=== PATIENT | female | born 1970 | race Caucasian/White ===

== ENCOUNTER 2017-08-18 09:40 | Observation (INO) | payer OTHER ==
[2017-08-18] MEDS ORDERED: SOLU-Medrol 125 MG VIAL IVP ONE (11:50)
[2017-08-18] MEDS: NS 500 ML IV 500 ML IV SCH (12:00)
[2017-08-18 12:39] LABS: BASOPHILS # (AUTO) 0.1 X10^3/uL (0.0-0.1); BASOPHILS % (AUTO) 0.9 % (0.2-1.0); EOSINOPHILS # (AUTO) 0.1 x10^3/uL (0.0-0.2); EOSINOPHILS % (AUTO) 0.6 % (0.9-2.9); HEMATOCRIT 42.4 % (36.0-47.0); HEMOGLOBIN 14.7 g/dL (12.0-16.0); LYMPHOCYTES # (AUTO) 1.9 X10^3/uL (1.3-2.9); LYMPHOCYTES % (AUTO) 19.7 % (21.0-51.0); MEAN CORPUSCULAR HEMOGLOBIN 30.7 pg (27.0-34.0); MEAN CORPUSCULAR HGB CONC 34.7 g/dL (33.0-35.0); MEAN CORPUSCULAR VOLUME 88.6 fL (80.0-100.0); MEAN PLATELET VOLUME 7.3 fL (7.4-11.0); MONOCYTES # (AUTO) 0.8 x10^3/uL (0.3-0.8); MONOCYTES % (AUTO) 8.2 % (0.0-13.0); NEUTROPHILS # (AUTO) 6.8 x10^3/uL (2.2-4.8); NEUTROPHILS % (AUTO) 70.6 % (42.0-75.0); PLATELET COUNT 317 X10^3/uL (150.0-450.0); RED BLOOD COUNT 4.78 X10^6/uL (3.5-5.4); RED CELL DISTRIBUTION WIDTH 14.1 % (11.6-16.5); WHITE BLOOD COUNT 9.7 X10^3/uL (3.6-10.0)
[2017-08-18] MEDS ORDERED: NS 500 ML IV 500 ML IV ONE (12:42)
[2017-08-18 12:45] LABS: BLOOD UREA NITROGEN 12 mg/dL (7-18); CALCIUM 9.5 mg/dL (8.5-10.1); CHLORIDE 104 mmol/L (98-107); COR NA(FOR HYPERGLY) 140 mmol/L (136-145); CREATININE 1.22 mg/dL (0.55-1.02); SODIUM 140 mmol/L (136-145); eGFR BLACK RACES > 60 (>60); eGFR NON BLACK RACES 51 (>60)
[2017-08-18 13:00] LABS: ABG BASE EXCESS 2.4 mmol/L (-2.0-2.0); ABG HCO3 27.2 mmol/L (22-26)
[2017-08-18 13:01] LABS: ABG ALLEN TEST POS
[2017-08-18 13:19] VITALS: BMI 43.9
--- NOTE | 2017-08-18 13:21 | RAD ---
Examination: Chest, PA and lateral views History: SOB, history of hypertension and CHF Comparison reference 07/18/2017 Findings: Continued normal heart size with clear lungs and pleural spaces. Symmetric low volume lungs , attributed to patient habitus. Impression: No acute or significant chest abnormality identified. Reported By:
[2017-08-18] MEDS: DUONEB 0.5 MG/3 MG NEB SCH ×3 (13:31→20:40)
[2017-08-18] MEDS: ZITHROMAX INJ 500 MG VIAL 500 MG in NS 250 ML IV 250 ML IV SCH (14:11)
[2017-08-18] MEDS: ROCEPHIN VIAL 1 GM 1 GM in NS 50 ML IV 50 ML IV SCH (14:12)
[2017-08-18 15:08] LABS: BILIRUBIN,URINE NEGATIVE (NEGATIVE); BLOOD/HEMOGLOBIN,URINE NEGATIVE (NEGATIVE); GLUCOSE, URINE NEGATIVE (NEGATIVE); KETONES,URINE NEGATIVE (NEGATIVE); LEUKOCYTE ESTERASE ,URINE 1+ (NEGATIVE); NITRITES,URINE NEGATIVE (NEGATIVE); PROTEIN,URINE NEGATIVE (NEGATIVE); UROBILINOGEN,URINE NORMAL (NORMAL)
[2017-08-18 15:26] LABS: APPEARANCE,URINE CLEAR (CLEAR); COLOR,URINE YELLOW (YELLOW); RBC,URINE 0-1 /HPF (NEGATIVE); SQUAMOUS EPITHELIAL CELL,UR FEW /HPF (NEGATIVE)
[2017-08-18 15:27] LABS: BACTERIA,URINE NEGATIVE /HPF (NEGATIVE)
[2017-08-18] MEDS ORDERED: SALINE 3% 15 ML NEB TX NEB ONE ×2 (16:55→17:55)
[2017-08-18] MEDS ORDERED: SALINE 3% 15 ML NEB TX ONE (16:56)
--- NOTE | 2017-08-18 17:02 | DR.H&P ---
H&P - History & Physical for Day of: H&P Date: 08/18/17 - Chief Complaint Chief Complaint: SOB - Allergies Allergies/Adverse Reactions: Allergies Allergy/AdvReac Type Severity Reaction Status Date / Time No Known Drug Allergies Allergy Verified 07/11/17 07:29 - History of Present Illness History of Present Illness: Patient is a 46 yo WF that presents today with upper respiratory congestion X 1 weeks . Patient reports productive green sputum with cough. The patient reports no fever . Patient reports nasal congestion , sore throat , no dizziness , no decreased oral intake , lethargy . States she has not got out of the bed in 3 days. States she is very SOB with minimal exertion. Patient is on long-term O2 therapy. Was recently admitted with respiratory flare. 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 - Past Medical History Past Medical History: COPD (Chronic O2 dependent), Migraines, Hypertension - Past Surgical History Surgical History: Cholecystectomy - Family History Family Medical History: Diabetes Mellitus, Cancer, [place], Sudden Cardiac , Hypertension - Social History Does patient currently use any type of tobacco product: No Have you used tobacco products in the last 12 months: Yes (occationally) Type of Tobacco Use: None Does any household member use tobacco: No Alcohol Use: None Drug Use: None - Review of Systems Constitutional: Weakness, Malaise Eyes: No Symptoms Reported ENT: No Symptoms Reported Respiratory: Cough, Shortness of Breath, SOB with Excertion, Wheezing Cardiovascular: No Symptoms Reported Gastrointestinal: No Symptoms Reported Genitourinary: No Symptoms Reported Musculoskeletal: No Symptoms Reported Skin: No Symptoms Reported Neurological: No Symptoms Reported - Physical Exam Vital Signs: Temperature 98.5 F Pulse Rate [Right Brachial] 95 Respiratory Rate 20 Blood Pressure [Right Arm] 114/74 Blood Pressure [Left Arm] 100/54 Blood Pressure 99/56 O2 Sat by Pulse Oximetry 97 Oriented: Normal Eyes: Normal Ear: Normal Nose: Normal Throat: Normal Respiratory: Diminished Throughout Cardiovascular: Normal : Normal Auscultation: Bowel Sounds: Normal Palpation: Normal Tenderness: Normal Skin: Normal Musculoskeletal: Normal Psychiatric: Normal Mood Description: Calm Affect: Normal Speech Pattern: Clear - Assessment/Plan (1) COPD (chronic obstructive pulmonary disease) with acute bronchitis Status: Acute Plan: CXR, ABG, NEBS, SOLUMEDROL, ROCEPHIN, ZITHROMAX (2) Chronic respiratory failure Status: Acute Plan: O2 AT 2L/M NC, ABG (3) UTI (urinary tract infection) Status: Acute Plan: ROCEPHIN IV
[2017-08-18] MEDS: NORCO 5/325 MG TAB PO PRN (21:10)
[2017-08-18] MEDS: AMBIEN PO PRN (21:10)
[2017-08-18] MEDS ORDERED: STERILE WATER IRRIGATION IR ONE (21:11)
[2017-08-19] MEDS: DUONEB 0.5 MG/3 MG NEB SCH ×7 (01:08→22:46)
[2017-08-19 06:05] LABS: ALANINE AMINOTRANSFERASE 31 Units/L (12-78); ALBUMIN 3.8 g/dL (3.4-5.0); ALKALINE PHOSPHATASE 82 Units/L (46-116); ASPARTATE AMINO TRANSFERASE 12 Units/L (15-37); BLOOD UREA NITROGEN 18 mg/dL (7-18); CALCIUM 9.4 mg/dL (8.5-10.1); CARBON DIOXIDE 25.1 mmol/L (21-32); CHLORIDE 104 mmol/L (98-107); COR NA(FOR HYPERGLY) 144 mmol/L (136-145); CREATININE 1.06 mg/dL (0.55-1.02); SODIUM 141 mmol/L (136-145); eGFR BLACK RACES > 60 (>60); eGFR NON BLACK RACES 60 (>60)
[2017-08-19 06:08] LABS: BASOPHILS % (AUTO) 0.2 % (0.2-1.0); HEMATOCRIT 40.6 % (36.0-47.0); LYMPHOCYTES # (AUTO) 0.5 X10^3/uL (1.3-2.9); LYMPHOCYTES % (AUTO) 4.6 % (21.0-51.0); MEAN CORPUSCULAR HEMOGLOBIN 30.6 pg (27.0-34.0); MEAN CORPUSCULAR HGB CONC 34.4 g/dL (33.0-35.0); MEAN CORPUSCULAR VOLUME 88.8 fL (80.0-100.0); MEAN PLATELET VOLUME 7.6 fL (7.4-11.0); MONOCYTES # (AUTO) 0.3 x10^3/uL (0.3-0.8); MONOCYTES % (AUTO) 2.7 % (0.0-13.0); NEUTROPHILS # (AUTO) 10.8 x10^3/uL (2.2-4.8); NEUTROPHILS % (AUTO) 92.5 % (42.0-75.0); PLATELET COUNT 299 X10^3/uL (150.0-450.0); RED BLOOD COUNT 4.58 X10^6/uL (3.5-5.4); WHITE BLOOD COUNT 11.7 X10^3/uL (3.6-10.0)
[2017-08-19 07:06] LABS: PLATELET MORPHOLOGY COMMENT NORMAL (NORMAL)
[2017-08-19] MEDS: ROCEPHIN VIAL 1 GM 1 GM in NS 50 ML IV 50 ML IV SCH (08:54)
[2017-08-19] MEDS: ZITHROMAX INJ 500 MG VIAL 500 MG in NS 250 ML IV 250 ML IV SCH (08:54)
[2017-08-19] MEDS: NORCO 5/325 MG TAB PO PRN (08:55)
[2017-08-19] MEDS: MUCOMYST 20% 200 MG/ML NEB SCH ×3 (12:11→22:48)
[2017-08-19] MEDS ORDERED: IMITREX TAB PO ONE (13:23)
[2017-08-19] MEDS ORDERED: ULTRAM PO PRN (13:24)
[2017-08-19] MEDS: ZOFRAN INJ 4 MG VIAL IVP PRN ×2 (14:00→22:26)
[2017-08-19] MEDS: K-DUR TAB 20 MEQ PO SCH (14:01)
[2017-08-19] MEDS: NEURONTIN TAB 600 MG PO SCH ×2 (14:01→22:25)
[2017-08-19] MEDS: PROTONIX TAB 40 MG PO SCH (14:02)
[2017-08-19] MEDS: NORVASC TAB 5 MG PO SCH (14:02)
--- NOTE | 2017-08-19 17:11 | CT ---
HISTORY: Shortness of breath Study: CT chest without contrast Comparison: Plain film 08/18/2017 Technique: Axial noncontrast images with coronal and sagittal reformats. Dose reduction procedures we re used with mA/kv adjusted for body size. Findings: Examination of the mediastinum demonstrated no evidence for mediastinal masses, lymphadenopathy, or h ilar lymphadenopathy. No pleural effusions are identified. No chest wall or axillary abnormality is i dentified. Those portions of the upper abdominal organs visualized were within normal limits. Examina tion of the lung hester demonstrated no significant nodules, masses, alveolar infiltrates, areas of c onsolidation, peribronchial thickening, or bronchiectasis. IMPRESSION: No significant abnormality identified Reported By:
[2017-08-19] MEDS ORDERED: PATIENT'S HOME MEDICATION (Ranitidine Hcl [Zantac] 300 MG) PO SCH (21:00)
[2017-08-19] MEDS ORDERED: PATIENT'S HOME MEDICATION (Rosuvastatin Calcium [Rosuvastatin Calcium] 20 MG) PO SCH (21:00)
[2017-08-19] MEDS: CRESTOR TAB 10 MG PO SCH (22:24)
[2017-08-19] MEDS: ZANTAC PO SCH (22:25)
[2017-08-19] MEDS: FLEXERIL TAB 10 MG PO SCH (22:26)
[2017-08-19] MEDS: SEROquel TAB 100 MG PO SCH (22:28)
[2017-08-19] MEDS: XANAX PO PRN (22:36)
[2017-08-19] MEDS: CYMBALTA PO SCH (22:36)
[2017-08-20] MEDS: DUONEB 0.5 MG/3 MG NEB SCH ×6 (00:41→21:29)
[2017-08-20 05:00] LABS: ALANINE AMINOTRANSFERASE 27 Units/L (12-78); ALBUMIN 3.6 g/dL (3.4-5.0); ALKALINE PHOSPHATASE 74 Units/L (46-116); ASPARTATE AMINO TRANSFERASE 10 Units/L (15-37); BLOOD UREA NITROGEN 18 mg/dL (7-18); CALCIUM 8.7 mg/dL (8.5-10.1); CARBON DIOXIDE 24.2 mmol/L (21-32); CHLORIDE 108 mmol/L (98-107); COR NA(FOR HYPERGLY) 144 mmol/L (136-145); CREATININE 0.87 mg/dL (0.55-1.02); SODIUM 143 mmol/L (136-145); TOTAL PROTEIN 6.5 g/dL (6.4-8.2); eGFR BLACK RACES > 60 (>60); eGFR NON BLACK RACES > 60 (>60)
[2017-08-20 05:07] LABS: BASOPHILS # (AUTO) 0.1 X10^3/uL (0.0-0.1); BASOPHILS % (AUTO) 0.7 % (0.2-1.0); EOSINOPHILS % (AUTO) 0.2 % (0.9-2.9); HEMATOCRIT 38.6 % (36.0-47.0); HEMOGLOBIN 13.3 g/dL (12.0-16.0); LYMPHOCYTES # (AUTO) 2.5 X10^3/uL (1.3-2.9); LYMPHOCYTES % (AUTO) 23.3 % (21.0-51.0); MEAN CORPUSCULAR HEMOGLOBIN 30.8 pg (27.0-34.0); MEAN CORPUSCULAR HGB CONC 34.5 g/dL (33.0-35.0); MEAN CORPUSCULAR VOLUME 89.3 fL (80.0-100.0); MEAN PLATELET VOLUME 7.2 fL (7.4-11.0); MONOCYTES # (AUTO) 0.7 x10^3/uL (0.3-0.8); MONOCYTES % (AUTO) 6.7 % (0.0-13.0); NEUTROPHILS # (AUTO) 7.4 x10^3/uL (2.2-4.8); NEUTROPHILS % (AUTO) 69.1 % (42.0-75.0); PLATELET COUNT 278 X10^3/uL (150.0-450.0); RED BLOOD COUNT 4.32 X10^6/uL (3.5-5.4); WHITE BLOOD COUNT 10.7 X10^3/uL (3.6-10.0)
[2017-08-20] MEDS: NEURONTIN TAB 600 MG PO SCH ×3 (05:18→21:10)
[2017-08-20] MEDS: NS 500 ML IV 500 ML IV SCH ×2 (07:27→16:47)
[2017-08-20] MEDS: ROCEPHIN VIAL 1 GM 1 GM in NS 100 ML IV + SPIKE MINIBAG* 100 ML IV SCH (08:40)
[2017-08-20] MEDS: SEROquel TAB 100 MG PO SCH ×2 (08:40→20:51)
[2017-08-20] MEDS: FLEXERIL TAB 10 MG PO SCH ×2 (08:40→20:51)
[2017-08-20] MEDS: ALDACTONE TAB 25 MG PO SCH (08:40)
[2017-08-20] MEDS: ZITHROMAX INJ 500 MG VIAL 500 MG in NS 250 ML IV 250 ML IV SCH (08:40)
[2017-08-20] MEDS: SINGULAIR TAB 10 MG PO SCH (08:40)
[2017-08-20] MEDS: ZOFRAN INJ 4 MG VIAL IVP PRN (08:41)
[2017-08-20] MEDS: PROTONIX TAB 40 MG PO SCH (08:41)
[2017-08-20] MEDS: K-DUR TAB 20 MEQ PO SCH (08:41)
[2017-08-20] MEDS: LASIX PO SCH (08:41)
[2017-08-20] MEDS: TENORMIN PO SCH (08:41)
[2017-08-20] MEDS ORDERED: PATIENT'S HOME MEDICATION (Potassium Chloride [K-Tab Er] 20 MEQ) PO SCH (09:00)
[2017-08-20] MEDS: MUCOMYST 20% 200 MG/ML NEB SCH ×4 (09:06→21:29)
[2017-08-20] MEDS: CYMBALTA PO SCH ×2 (10:26→20:54)
[2017-08-20] MEDS: NORVASC TAB 5 MG PO SCH (10:27)
[2017-08-20] MEDS ORDERED: NS 1000 ML 1,000 ML IV SCH (14:00)
[2017-08-20] MEDS: ZANTAC PO SCH (20:51)
[2017-08-20] MEDS: CRESTOR TAB 10 MG PO SCH (20:52)
[2017-08-20] MEDS: XANAX PO PRN (21:13)
[2017-08-21] MEDS: DUONEB 0.5 MG/3 MG NEB SCH ×6 (00:55→21:42)
[2017-08-21] MEDS: NEURONTIN TAB 600 MG PO SCH ×3 (05:17→22:19)
[2017-08-21 06:30] LABS: ALANINE AMINOTRANSFERASE 30 Units/L (12-78); ALBUMIN 3.7 g/dL (3.4-5.0); ALKALINE PHOSPHATASE 89 Units/L (46-116); ASPARTATE AMINO TRANSFERASE 11 Units/L (15-37); BLOOD UREA NITROGEN 18 mg/dL (7-18); CALCIUM 9.4 mg/dL (8.5-10.1); CHLORIDE 106 mmol/L (98-107); CREATININE 0.92 mg/dL (0.55-1.02); SODIUM 144 mmol/L (136-145); TOTAL PROTEIN 6.7 g/dL (6.4-8.2); eGFR BLACK RACES > 60 (>60); eGFR NON BLACK RACES > 60 (>60)
[2017-08-21 06:31] LABS: BASOPHILS % (AUTO) 0.5 % (0.2-1.0); EOSINOPHILS # (AUTO) 0.1 x10^3/uL (0.0-0.2); EOSINOPHILS % (AUTO) 0.9 % (0.9-2.9); HEMATOCRIT 40.7 % (36.0-47.0); HEMOGLOBIN 14.3 g/dL (12.0-16.0); LYMPHOCYTES # (AUTO) 2.4 X10^3/uL (1.3-2.9); LYMPHOCYTES % (AUTO) 26.8 % (21.0-51.0); MEAN CORPUSCULAR HEMOGLOBIN 31.2 pg (27.0-34.0); MEAN CORPUSCULAR VOLUME 89.1 fL (80.0-100.0); MEAN PLATELET VOLUME 7.3 fL (7.4-11.0); MONOCYTES # (AUTO) 0.9 x10^3/uL (0.3-0.8); MONOCYTES % (AUTO) 9.5 % (0.0-13.0); NEUTROPHILS # (AUTO) 5.7 x10^3/uL (2.2-4.8); NEUTROPHILS % (AUTO) 62.3 % (42.0-75.0); PLATELET COUNT 273 X10^3/uL (150.0-450.0); RED BLOOD COUNT 4.57 X10^6/uL (3.5-5.4); RED CELL DISTRIBUTION WIDTH 14.3 % (11.6-16.5); WHITE BLOOD COUNT 9.1 X10^3/uL (3.6-10.0)
[2017-08-21] MEDS: ZITHROMAX INJ 500 MG VIAL 500 MG in NS 250 ML IV 250 ML IV SCH (09:13)
[2017-08-21] MEDS: SINGULAIR TAB 10 MG PO SCH (09:14)
[2017-08-21] MEDS: K-DUR TAB 20 MEQ PO SCH (09:14)
[2017-08-21] MEDS: LASIX PO SCH (09:14)
[2017-08-21] MEDS: SEROquel TAB 100 MG PO SCH ×2 (09:14→20:11)
[2017-08-21] MEDS: NORVASC TAB 5 MG PO SCH (09:14)
[2017-08-21] MEDS: PROTONIX TAB 40 MG PO SCH (09:14)
[2017-08-21] MEDS: ALDACTONE TAB 25 MG PO SCH (09:14)
[2017-08-21] MEDS: FLEXERIL TAB 10 MG PO SCH ×2 (09:15→20:11)
[2017-08-21] MEDS: TENORMIN PO SCH (09:15)
[2017-08-21] MEDS: ROCEPHIN VIAL 1 GM 1 GM in NS 100 ML IV + SPIKE MINIBAG* 100 ML IV SCH (09:15)
[2017-08-21] MEDS: MUCOMYST 20% 200 MG/ML NEB SCH ×4 (09:33→21:42)
[2017-08-21] MEDS: ZOFRAN INJ 4 MG VIAL IVP PRN ×2 (09:51→16:44)
[2017-08-21] MEDS: CYMBALTA PO SCH ×2 (13:57→20:11)
[2017-08-21] MEDS: XANAX PO PRN (20:11)
[2017-08-21] MEDS: ZANTAC PO SCH (20:11)
[2017-08-21] MEDS: NORCO 10/325 TAB PO PRN (20:11)
[2017-08-21] MEDS: CRESTOR TAB 10 MG PO SCH (20:11)
[2017-08-21] MEDS: NS 500 ML IV 500 ML IV SCH (20:12)
[2017-08-21] MEDS: AMBIEN PO PRN (20:12)
[2017-08-22] MEDS: DUONEB 0.5 MG/3 MG NEB SCH ×4 (00:48→12:04)
[2017-08-22] MEDS: NEURONTIN TAB 600 MG PO SCH ×2 (05:51→13:12)
[2017-08-22 06:31] LABS: BASOPHILS # (AUTO) 0.1 X10^3/uL (0.0-0.1); BASOPHILS % (AUTO) 0.8 % (0.2-1.0); EOSINOPHILS # (AUTO) 0.1 x10^3/uL (0.0-0.2); EOSINOPHILS % (AUTO) 0.6 % (0.9-2.9); HEMATOCRIT 39.3 % (36.0-47.0); HEMOGLOBIN 13.6 g/dL (12.0-16.0); LYMPHOCYTES # (AUTO) 2.6 X10^3/uL (1.3-2.9); LYMPHOCYTES % (AUTO) 29.1 % (21.0-51.0); MEAN CORPUSCULAR HEMOGLOBIN 31.1 pg (27.0-34.0); MEAN CORPUSCULAR HGB CONC 34.7 g/dL (33.0-35.0); MEAN CORPUSCULAR VOLUME 89.6 fL (80.0-100.0); MEAN PLATELET VOLUME 7.2 fL (7.4-11.0); MONOCYTES # (AUTO) 0.7 x10^3/uL (0.3-0.8); MONOCYTES % (AUTO) 7.6 % (0.0-13.0); NEUTROPHILS # (AUTO) 5.5 x10^3/uL (2.2-4.8); NEUTROPHILS % (AUTO) 61.9 % (42.0-75.0); PLATELET COUNT 262 X10^3/uL (150.0-450.0); RED BLOOD COUNT 4.39 X10^6/uL (3.5-5.4); RED CELL DISTRIBUTION WIDTH 14.1 % (11.6-16.5); WHITE BLOOD COUNT 8.8 X10^3/uL (3.6-10.0)
[2017-08-22 06:55] LABS: ALANINE AMINOTRANSFERASE 33 Units/L (12-78); ALBUMIN 3.5 g/dL (3.4-5.0); ALKALINE PHOSPHATASE 87 Units/L (46-116); ASPARTATE AMINO TRANSFERASE 18 Units/L (15-37); BLOOD UREA NITROGEN 27 mg/dL (7-18); CALCIUM 9.1 mg/dL (8.5-10.1); CARBON DIOXIDE 25.2 mmol/L (21-32); CHLORIDE 105 mmol/L (98-107); COR NA(FOR HYPERGLY) 143 mmol/L (136-145); CREATININE 0.94 mg/dL (0.55-1.02); SODIUM 142 mmol/L (136-145); TOTAL PROTEIN 6.4 g/dL (6.4-8.2); eGFR BLACK RACES > 60 (>60); eGFR NON BLACK RACES > 60 (>60)
--- NOTE | 2017-08-22 07:01 | RAD ---
Examination: Portable AP chest History: COPD, SOB Comparison 08/18/2017 Findings: Continued upper normal heart size with essentially clear lungs. Elevated right diaphragm li mits evaluation of the right lower lung. There is no obvious consolidation, pulmonary edema or pneumo thorax. Impression: No interval abnormality demonstrated. Reported By:
[2017-08-22] MEDS: ZOFRAN INJ 4 MG VIAL IVP PRN (09:04)
[2017-08-22] MEDS: SEROquel TAB 100 MG PO SCH (09:06)
[2017-08-22] MEDS: K-DUR TAB 20 MEQ PO SCH (09:06)
[2017-08-22] MEDS: NORCO 10/325 TAB PO PRN (09:07)
[2017-08-22] MEDS: SINGULAIR TAB 10 MG PO SCH (09:07)
[2017-08-22] MEDS: LASIX PO SCH (09:08)
[2017-08-22] MEDS: ALDACTONE TAB 25 MG PO SCH (09:08)
[2017-08-22] MEDS: FLEXERIL TAB 10 MG PO SCH (09:08)
[2017-08-22] MEDS: PROTONIX TAB 40 MG PO SCH (09:08)
[2017-08-22] MEDS: TENORMIN PO SCH (09:08)
[2017-08-22] MEDS: CYMBALTA PO SCH (09:11)
[2017-08-22] MEDS: ROCEPHIN VIAL 1 GM 1 GM in NS 100 ML IV + SPIKE MINIBAG* 100 ML IV SCH (11:25)
[2017-08-22] MEDS: ZITHROMAX INJ 500 MG VIAL 500 MG in NS 250 ML IV 250 ML IV SCH (11:26)
[2017-08-22 12:02] VITALS: BP 93/58
== END 2017-08-22 15:10 | disposition home or self-care (01) ==
LOC: UNDOADMOB 09:40 → MED/SURG 09:40
PROVIDERS: ADMIT Internal Medicine; ATTEND Internal Medicine
DX: J44.1 Chronic obstructive pulmonary disease with (acute) exacerbation (principal); J44.0 Chronic obstructive pulmonary disease with (acute) lower respiratory infection; J20.8 Acute bronchitis due to other specified organisms; R06.02 Shortness of breath; Z99.81 Dependence on supplemental oxygen; I10 Essential (primary) hypertension; J45.998 Other asthma
CPT/HCPCS: 36415; 36600; 71020; 71045; 71250; 80048; 80053; 81001; 82803; 85025; 87040; 87086; 93005; 93010; 94640; 94669; 94760; A4217; A4222; G0378; J0456; J0696; J2405; J2930; J7608; J7620

== ENCOUNTER 2017-09-22 12:29 | Inpatient (IN) | payer OTHER ==
--- NOTE | 2017-09-22 13:46 | RAD ---
Examination: Chest, PA and lateral views History: SOB, COPD Comparison August 22, 2017 Findings: Normal heart size with essentially clear lungs. Diminished pulmonary volumes probably relat ed to patient habitus. No pulmonary consolidation, pneumothorax or significant pleural fluid. Impression: No acute chest findings. Reported By:
[2017-09-22 13:53] LABS: BASOPHILS # (AUTO) 0.1 X10^3/uL (0.0-0.1); BASOPHILS % (AUTO) 0.5 % (0.2-1.0); HEMATOCRIT 41.3 % (36.0-47.0); HEMOGLOBIN 14.7 g/dL (12.0-16.0); LYMPHOCYTES % (AUTO) 8.7 % (21.0-51.0); MEAN CORPUSCULAR HEMOGLOBIN 31.3 pg (27.0-34.0); MEAN CORPUSCULAR HGB CONC 35.7 g/dL (33.0-35.0); MEAN CORPUSCULAR VOLUME 87.6 fL (80.0-100.0); MONOCYTES # (AUTO) 0.6 x10^3/uL (0.3-0.8); MONOCYTES % (AUTO) 4.8 % (0.0-13.0); NEUTROPHILS # (AUTO) 9.8 x10^3/uL (2.2-4.8); PLATELET COUNT 262 X10^3/uL (150.0-450.0); RED BLOOD COUNT 4.71 X10^6/uL (3.5-5.4); RED CELL DISTRIBUTION WIDTH 13.7 % (11.6-16.5); WHITE BLOOD COUNT 11.4 X10^3/uL (3.6-10.0)
[2017-09-22 13:59] LABS: CALCIUM 9.2 mg/dL (8.5-10.1); CREATININE 1.52 mg/dL (0.55-1.02)
[2017-09-22 14:56] LABS: ABG BASE EXCESS 5.6 mmol/L (-2.0-2.0); ABG HCO3 29.8 mmol/L (22-26)
[2017-09-22 14:57] LABS: ABG ALLEN TEST POS
[2017-09-22 15:06] LABS: BILIRUBIN,URINE NEGATIVE (NEGATIVE); BLOOD/HEMOGLOBIN,URINE NEGATIVE (NEGATIVE); GLUCOSE, URINE NEGATIVE (NEGATIVE); KETONES,URINE NEGATIVE (NEGATIVE); LEUKOCYTE ESTERASE ,URINE 2+ (NEGATIVE); NITRITES,URINE NEGATIVE (NEGATIVE); PROTEIN,URINE NEGATIVE (NEGATIVE); UROBILINOGEN,URINE NORMAL (NORMAL)
[2017-09-22 15:13] LABS: APPEARANCE,URINE CLEAR (CLEAR); BACTERIA,URINE TRACE /HPF (NEGATIVE); COLOR,URINE YELLOW (YELLOW); RBC,URINE 0-2 /HPF (NEGATIVE); SQUAMOUS EPITHELIAL CELL,UR NEGATIVE /HPF (NEGATIVE)
[2017-09-22] MEDS ORDERED: NS 100 ML IV + SPIKE MINIBAG* 100 ML IV ONE (15:46)
[2017-09-22] MEDS: NS 500 ML IV 500 ML IV SCH (16:16)
[2017-09-22] MEDS: FORTAZ or TAZICEF INJ 1 GM in NS 100 ML IV + SPIKE MINIBAG* 100 ML IV SCH ×2 (16:16→22:02)
[2017-09-22] MEDS ORDERED: ZOFRAN INJ 4 MG VIAL IVP PRN (16:18)
[2017-09-22] MEDS ORDERED: ZOFRAN TAB 4 MG ONE (16:25)
[2017-09-22] MEDS: NORCO 10/325 TAB PO PRN (16:30)
[2017-09-22] MEDS: DUONEB 0.5 MG/3 MG NEB SCH ×2 (16:50→21:52)
[2017-09-22 17:03] VITALS: BMI 44.1
[2017-09-22] MEDS: CIPRO IV 400 MG PREMIX* 400 MG/200 ML IV.SOLN. IV SCH (22:02)
[2017-09-23] MEDS: DUONEB 0.5 MG/3 MG NEB SCH ×5 (01:24→17:23)
[2017-09-23] MEDS: FORTAZ or TAZICEF INJ 1 GM in NS 100 ML IV + SPIKE MINIBAG* 100 ML IV SCH ×3 (05:29→23:12)
[2017-09-23 06:35] LABS: BASOPHILS % (AUTO) 0.4 % (0.2-1.0); EOSINOPHILS % (AUTO) 0.2 % (0.9-2.9); HEMATOCRIT 38.7 % (36.0-47.0); HEMOGLOBIN 13.4 g/dL (12.0-16.0); LYMPHOCYTES # (AUTO) 1.5 X10^3/uL (1.3-2.9); LYMPHOCYTES % (AUTO) 22.1 % (21.0-51.0); MEAN CORPUSCULAR HEMOGLOBIN 30.6 pg (27.0-34.0); MEAN CORPUSCULAR HGB CONC 34.8 g/dL (33.0-35.0); MEAN PLATELET VOLUME 7.2 fL (7.4-11.0); MONOCYTES # (AUTO) 0.6 x10^3/uL (0.3-0.8); MONOCYTES % (AUTO) 8.3 % (0.0-13.0); NEUTROPHILS # (AUTO) 4.6 x10^3/uL (2.2-4.8); PLATELET COUNT 204 X10^3/uL (150.0-450.0); RED BLOOD COUNT 4.39 X10^6/uL (3.5-5.4); RED CELL DISTRIBUTION WIDTH 13.9 % (11.6-16.5); WHITE BLOOD COUNT 6.6 X10^3/uL (3.6-10.0)
[2017-09-23 06:39] LABS: ALANINE AMINOTRANSFERASE 28 Units/L (12-78); ALBUMIN 3.3 g/dL (3.4-5.0); ALKALINE PHOSPHATASE 50 Units/L (46-116); ASPARTATE AMINO TRANSFERASE 7 Units/L (15-37); BLOOD UREA NITROGEN 17 mg/dL (7-18); CALCIUM 8.6 mg/dL (8.5-10.1); CHLORIDE 107 mmol/L (98-107); COR CA(FOR HYPOALB) 9.2 mg/dL (8.5-10.1); CREATININE 0.97 mg/dL (0.55-1.02); SODIUM 145 mmol/L (136-145); TOTAL PROTEIN 6.1 g/dL (6.4-8.2); eGFR BLACK RACES > 60 (>60); eGFR NON BLACK RACES > 60 (>60)
[2017-09-23] MEDS: CIPRO IV 400 MG PREMIX* 400 MG/200 ML IV.SOLN. IV SCH ×2 (08:57→21:01)
[2017-09-23] MEDS: SOLU-Medrol 40 MG VIAL IVP SCH ×2 (08:57→17:06)
[2017-09-23] MEDS: NORCO 10/325 TAB PO PRN (08:57)
[2017-09-23] MEDS ORDERED: K-RIDER 10 MEQ/NS 100 ML 10 MEQ/100 ML BAG IV PRN (09:09)
[2017-09-23] MEDS ORDERED: POTASSIUM CHL 60 MEQ/NS 0.45% 500 ML IV PRN (09:09)
[2017-09-23] MEDS ORDERED: POTASSIUM CHLORIDE LIQ 20 MEQ UDC PO PRN (09:09)
[2017-09-23] MEDS ORDERED: POTASSIUM CHL 40 MEQ/NS 0.45% 500 ML IV PRN (09:09)
[2017-09-23] MEDS ORDERED: K-LYTE EFFERVESCENT PO PRN (09:09)
[2017-09-23] MEDS ORDERED: MAGNESIUM SULFATE 1 GM/100 mL PREMIX 1 GM/100 ML BAG IV PRN (09:09)
[2017-09-23] MEDS ORDERED: MAG-OX TAB PO PRN (09:09)
--- NOTE | 2017-09-23 10:40 | DR.H&P ---
H&P - History & Physical for Day of: H&P Date: 09/21/17 - Chief Complaint Chief Complaint: SOB, Fatigue - Allergies Allergies/Adverse Reactions: Allergies Allergy/AdvReac Type Severity Reaction Status Date / Time No Known Drug Allergies Allergy Verified 07/11/17 07:29 - History of Present Illness History of Present Illness: THE PATIENT IS A 46YO WF WHO IS A DIRECT ADMIT SECONDARY TO CONTNUED DYSPNEA AND FATIGUE. PATIENT WAS SEEN IN THE CLINIC WITH COMLAINTS OF INCREASING DYSPNEA AND CONGESTION. HAVING LOW GRADE FEVER. DENIED PRODUCTIVE COUGH. CWEAR CONTINUIOUS OXYGEN. HAS BEEN USING HER NEBS AND INHALERS WITHOUT IMPROVEMENT. DID RECEIVE ROCEPHIN AND DECADRON IN OFFICE SETTING AND STARTED ON PO ANTIBIOTICS EARLIER IN THE WEEK WITHOUT IMPROVEMENT OF SYMPTOMS. PATIENT ADMITTED. - Past Medical History Past Medical History: COPD (Chronic O2 dependent), Migraines, Hypertension Additional Medical History: CHRONIC RESPIRATORY FAILURE ON OXYGEN - Past Surgical History Surgical History: Cholecystectomy, Other - Family History Family Medical History: Diabetes Mellitus, Cancer, [place], Sudden Cardiac , Hypertension - Social History Does patient currently use any type of tobacco product: No Have you used tobacco products in the last 12 months: No Type of Tobacco Use: None Does any household member use tobacco: No Alcohol Use: None Drug Use: None - Medications Home Medications: Ipratropium/Albuterol Nebule [DUONEB 0.5 MG/3 MG NEBULE *] 1 ea NEB Q6HR [History Confirmed 09/22/17] Loratadine 1 tab PO DAILY 09/22/17 [History Confirmed 09/22/17] Ondansetron HCl [Ondansetron HCl] 1 tab PO Q6H 09/22/17 [History Confirmed 09/22] Oseltamivir Phosphate [TAMIFLU 75 MG CAP (ADULT) *] 1 tab PO BID 09/22/17 [ History Confirmed 09/22/17] Phendimetrazine Tartrate 1 tab PO DAILY 09/22/17 [History Confirmed 09/22/17] Phendimetrazine Tartrate 1 tab PO DAILY 09/22/17 [History Confirmed 09/22/17] Rosuvastatin Calcium 1 tab PO DAILY 09/22/17 [History Confirmed 09/22/17] Spironolactone 1 tab PO DAILY 09/22/17 [History Confirmed 09/22/17] - Review of Systems Constitutional: Weakness, Malaise Eyes: No Symptoms Reported ENT: Nose Congestion Respiratory: Cough, Shortness of Breath, SOB with Excertion, Wheezing Cardiovascular: No Symptoms Reported Gastrointestinal: No Symptoms Reported Genitourinary: No Symptoms Reported Musculoskeletal: No Symptoms Reported Skin: No Symptoms Reported Neurological: No Symptoms Reported - Physical Exam Vital Signs: Temperature 98.2 F Pulse Rate [Left Brachial] 74 Pulse Rate 78 Respiratory Rate 18 Blood Pressure [Right Arm] 100/56 Blood Pressure [Left Arm] 93/58 Blood Pressure 93/58 O2 Sat by Pulse Oximetry 95 Oriented: Normal Eyes: Normal Ear: Normal Nose: Normal Throat: Normal Respiratory: Diminished Throughout Cardiovascular: Normal : Normal Auscultation: Bowel Sounds: Normal Palpation: Normal Tenderness: Normal Skin: Normal Psychiatric: Normal Mood Description: Calm Affect: Normal Speech Pattern: Clear - Assessment/Plan (1) COPD exacerbation Status: Acute Plan: CXR, ABG, LABS, IV STEROIDS, ANTIBIOTICS. (2) UTI (urinary tract infection) Status: Acute Plan: IV ANTIBIOTICS, UA CX PENDING (3) Chronic respiratory failure Status: Chronic Plan: CXR, ABG, LABS, IV STEROIDS, ANTIBIOTICS
[2017-09-23] MEDS: NORCO 10/325 TAB PO SCH ×3 (13:04→23:11)
[2017-09-23] MEDS: NEURONTIN TAB 600 MG PO SCH ×2 (13:04→21:02)
[2017-09-23] MEDS: ZOFRAN TAB 4 MG PO SCH ×3 (13:05→23:11)
[2017-09-23] MEDS: TENORMIN PO SCH (13:05)
[2017-09-23] MEDS: NORVASC TAB 5 MG PO SCH (13:05)
[2017-09-23] MEDS: XANAX PO PRN ×2 (13:05→21:02)
[2017-09-23] MEDS ORDERED: DUONEB 0.5 MG/3 MG NEB SCH (15:00)
[2017-09-23] MEDS ORDERED: NS 1000 ML 1,000 ML ONE (20:39)
[2017-09-23] MEDS ORDERED: DICLOFENAC SODIUM 100 MG PO SCH (21:00)
[2017-09-23] MEDS ORDERED: PATIENT'S HOME MEDICATION (Rosuvastatin Calcium [Rosuvastatin Calcium] 20 MG) PO SCH (21:00)
[2017-09-23] MEDS: CRESTOR TAB 10 MG PO SCH (21:01)
[2017-09-23] MEDS: SEROquel TAB 100 MG PO SCH (21:02)
[2017-09-23] MEDS: TAMIFLU PO SCH (21:02)
[2017-09-23 21:14] LABS: MYCOPLASMA PNEUMONIAE IGM AB NEGATIVE (NEGATIVE)
[2017-09-24] MEDS: SOLU-Medrol 40 MG VIAL IVP SCH ×4 (01:15→17:13)
[2017-09-24] MEDS: DUONEB 0.5 MG/3 MG NEB SCH ×7 (01:48→20:23)
[2017-09-24] MEDS: NORCO 10/325 TAB PO SCH ×4 (05:53→23:00)
[2017-09-24] MEDS: NEURONTIN TAB 600 MG PO SCH ×3 (05:54→21:15)
[2017-09-24] MEDS: ZOFRAN TAB 4 MG PO SCH ×4 (05:54→23:00)
[2017-09-24] MEDS: FORTAZ or TAZICEF INJ 1 GM in NS 100 ML IV + SPIKE MINIBAG* 100 ML IV SCH ×3 (06:11→22:24)
[2017-09-24 06:31] LABS: BASOPHILS % (AUTO) 0.2 % (0.2-1.0); HEMATOCRIT 37.8 % (36.0-47.0); HEMOGLOBIN 13.1 g/dL (12.0-16.0); LYMPHOCYTES # (AUTO) 0.6 X10^3/uL (1.3-2.9); LYMPHOCYTES % (AUTO) 7.1 % (21.0-51.0); MEAN CORPUSCULAR HEMOGLOBIN 30.7 pg (27.0-34.0); MEAN CORPUSCULAR HGB CONC 34.6 g/dL (33.0-35.0); MEAN CORPUSCULAR VOLUME 88.8 fL (80.0-100.0); MONOCYTES # (AUTO) 0.3 x10^3/uL (0.3-0.8); NEUTROPHILS # (AUTO) 7.4 x10^3/uL (2.2-4.8); NEUTROPHILS % (AUTO) 88.7 % (42.0-75.0); PLATELET COUNT 208 X10^3/uL (150.0-450.0); RED BLOOD COUNT 4.26 X10^6/uL (3.5-5.4); RED CELL DISTRIBUTION WIDTH 13.9 % (11.6-16.5); WHITE BLOOD COUNT 8.4 X10^3/uL (3.6-10.0)
[2017-09-24 06:42] LABS: BLOOD UREA NITROGEN 11 mg/dL (7-18); eGFR BLACK RACES > 60 (>60); eGFR NON BLACK RACES > 60 (>60)
[2017-09-24 07:01] LABS: ALKALINE PHOSPHATASE 54 Units/L (46-116)
[2017-09-24 07:23] LABS: ALANINE AMINOTRANSFERASE 27 Units/L (12-78); ALBUMIN 3.3 g/dL (3.4-5.0); ASPARTATE AMINO TRANSFERASE 9 Units/L (15-37); CHLORIDE 107 mmol/L (98-107); COR CA(FOR HYPOALB) 9.6 mg/dL (8.5-10.1); COR NA(FOR HYPERGLY) 144 mmol/L (136-145); CREATININE 0.82 mg/dL (0.55-1.02); SODIUM 142 mmol/L (136-145); TOTAL PROTEIN 6.2 g/dL (6.4-8.2)
[2017-09-24] MEDS: LASIX PO SCH (08:30)
[2017-09-24] MEDS: K-DUR TAB 20 MEQ PO SCH (08:30)
[2017-09-24] MEDS: ALDACTONE TAB 25 MG PO SCH (08:30)
[2017-09-24] MEDS: CLARITIN PO SCH (08:32)
[2017-09-24] MEDS: TENORMIN PO SCH (08:32)
[2017-09-24] MEDS: TAMIFLU PO SCH ×2 (08:33→21:15)
[2017-09-24] MEDS: NORVASC TAB 5 MG PO SCH (08:33)
[2017-09-24] MEDS: PROTONIX TAB 40 MG PO SCH (08:33)
[2017-09-24] MEDS: SINGULAIR TAB 10 MG PO SCH (08:33)
[2017-09-24] MEDS: SEROquel TAB 100 MG PO SCH ×2 (08:33→21:15)
[2017-09-24] MEDS ORDERED: PATIENT'S HOME MEDICATION (Loratadine [Loratadine] 1 TAB) PO SCH (09:00)
[2017-09-24] MEDS ORDERED: PATIENT'S HOME MEDICATION (Potassium Chloride [K-Tab Er] 20 MEQ) PO SCH (09:00)
[2017-09-24] MEDS: CIPRO IV 400 MG PREMIX* 400 MG/200 ML IV.SOLN. IV SCH ×2 (09:02→21:16)
--- NOTE | 2017-09-24 09:36 | RAD ---
HISTORY: Congestion and cough. Dyspnea. Single-view of the chest. Comparison: 09/22/2017. Findings: The trachea is midline. The cardiac silhouette is mildly enlarged but stable. There are i ncreased perihilar interstitial opacities seen, compatible with Acute bronchitis. The lungs are other may clear without focal infiltrate or effusion. The bony thorax is unremarkable. IMPRESSION: Radiographic findings of acute bronchitis. No lobar pneumonia or pleural effusion seen. Reported By:
[2017-09-24] MEDS: ROBITUSSIN DM PO PRN (11:28)
[2017-09-24] MEDS ORDERED: NS 100 ML IV + SPIKE MINIBAG* 100 ML IV ONE (13:46)
[2017-09-24] MEDS ORDERED: FORTAZ or TAZICEF INJ ONE (13:46)
[2017-09-24] MEDS: CRESTOR TAB 10 MG PO SCH (21:15)
[2017-09-24] MEDS ORDERED: STERILE WATER IRRIGATION IR ONE (21:19)
[2017-09-24] MEDS: XANAX PO PRN (21:24)
[2017-09-25] MEDS: DUONEB 0.5 MG/3 MG NEB SCH ×6 (00:05→21:25)
[2017-09-25 06:20] LABS: BASOPHILS % (AUTO) 0.1 % (0.2-1.0); EOSINOPHILS % (AUTO) 0.1 % (0.9-2.9); HEMATOCRIT 37.5 % (36.0-47.0); HEMOGLOBIN 12.9 g/dL (12.0-16.0); LYMPHOCYTES # (AUTO) 0.6 X10^3/uL (1.3-2.9); LYMPHOCYTES % (AUTO) 4.9 % (21.0-51.0); MEAN CORPUSCULAR HEMOGLOBIN 30.3 pg (27.0-34.0); MEAN CORPUSCULAR HGB CONC 34.4 g/dL (33.0-35.0); MEAN CORPUSCULAR VOLUME 88.1 fL (80.0-100.0); MEAN PLATELET VOLUME 7.1 fL (7.4-11.0); MONOCYTES # (AUTO) 0.6 x10^3/uL (0.3-0.8); MONOCYTES % (AUTO) 4.2 % (0.0-13.0); NEUTROPHILS # (AUTO) 11.9 x10^3/uL (2.2-4.8); NEUTROPHILS % (AUTO) 90.7 % (42.0-75.0); PLATELET COUNT 228 X10^3/uL (150.0-450.0); RED BLOOD COUNT 4.26 X10^6/uL (3.5-5.4); RED CELL DISTRIBUTION WIDTH 13.3 % (11.6-16.5); WHITE BLOOD COUNT 13.1 X10^3/uL (3.6-10.0)
[2017-09-25 07:11] LABS: ALANINE AMINOTRANSFERASE 25 Units/L (12-78); ALBUMIN 3.3 g/dL (3.4-5.0); ALKALINE PHOSPHATASE 61 Units/L (46-116); ASPARTATE AMINO TRANSFERASE < 6 Units/L (15-37); BLOOD UREA NITROGEN 17 mg/dL (7-18); CARBON DIOXIDE 26.8 mmol/L (21-32); CHLORIDE 104 mmol/L (98-107); COR CA(FOR HYPOALB) 9.6 mg/dL (8.5-10.1); COR NA(FOR HYPERGLY) 141 mmol/L (136-145); CREATININE 0.95 mg/dL (0.55-1.02); SODIUM 139 mmol/L (136-145); TOTAL PROTEIN 6.2 g/dL (6.4-8.2); eGFR BLACK RACES > 60 (>60); eGFR NON BLACK RACES > 60 (>60)
[2017-09-25 07:24] LABS: PLATELET MORPHOLOGY COMMENT NORMAL (NORMAL)
[2017-09-25] MEDS: NORVASC TAB 5 MG PO SCH (09:05)
[2017-09-25] MEDS: PROTONIX TAB 40 MG PO SCH (09:05)
[2017-09-25] MEDS: CLARITIN PO SCH (09:06)
[2017-09-25] MEDS: SEROquel TAB 100 MG PO SCH ×2 (09:06→20:30)
[2017-09-25] MEDS: LASIX PO SCH (09:06)
[2017-09-25] MEDS: SINGULAIR TAB 10 MG PO SCH (09:06)
[2017-09-25] MEDS: CIPRO IV 400 MG PREMIX* 400 MG/200 ML IV.SOLN. IV SCH ×2 (09:06→20:28)
[2017-09-25] MEDS: TAMIFLU PO SCH ×2 (09:06→20:30)
[2017-09-25] MEDS: TENORMIN PO SCH (09:06)
[2017-09-25] MEDS: ROBITUSSIN DM PO PRN ×2 (09:30→20:28)
[2017-09-25] MEDS: NEURONTIN TAB 600 MG PO SCH ×3 (09:31→21:44)
[2017-09-25] MEDS: XANAX PO PRN ×2 (09:31→20:30)
[2017-09-25] MEDS: K-DUR TAB 20 MEQ PO SCH (09:31)
[2017-09-25] MEDS: NORCO 10/325 TAB PO SCH ×4 (09:31→23:30)
[2017-09-25] MEDS: ZOFRAN TAB 4 MG PO SCH ×3 (09:31→23:29)
[2017-09-25] MEDS: PULMICORT NEB TX 0.5 MG NEB SCH ×3 (09:50→21:25)
[2017-09-25] MEDS: PREDNISONE TAB 20 MG PO SCH (11:17)
[2017-09-25] MEDS: CARAFATE SUSP 1 GM/10 ML PO SCH ×4 (11:17→20:28)
[2017-09-25] MEDS: CYMBALTA PO SCH (11:17)
[2017-09-25] MEDS: ALDACTONE TAB 25 MG PO SCH (11:17)
[2017-09-25] MEDS: FORTAZ or TAZICEF INJ 1 GM in NS 100 ML IV + SPIKE MINIBAG* 100 ML IV SCH ×2 (14:18→21:44)
[2017-09-25] MEDS: ECOTRIN TAB 325 MG PO SCH (14:19)
[2017-09-25 14:42] LABS: ABG ALLEN TEST POS; ABG BASE EXCESS 3.9 mmol/L (-2.0-2.0); ABG HCO3 27.7 mmol/L (22-26)
[2017-09-25] MEDS: CRESTOR TAB 10 MG PO SCH (20:31)
[2017-09-26] MEDS: DUONEB 0.5 MG/3 MG NEB SCH ×6 (00:39→21:54)
[2017-09-26] MEDS: CARAFATE SUSP 1 GM/10 ML PO SCH ×4 (05:54→21:35)
[2017-09-26] MEDS: FORTAZ or TAZICEF INJ 1 GM in NS 100 ML IV + SPIKE MINIBAG* 100 ML IV SCH ×3 (05:54→22:00)
[2017-09-26] MEDS: ZOFRAN TAB 4 MG PO SCH ×4 (05:55→22:12)
[2017-09-26] MEDS: NEURONTIN TAB 600 MG PO SCH ×3 (05:55→21:35)
[2017-09-26] MEDS: NORCO 10/325 TAB PO SCH ×4 (05:55→22:11)
[2017-09-26 06:04] LABS: ALANINE AMINOTRANSFERASE 29 Units/L (12-78); ALBUMIN 3.1 g/dL (3.4-5.0); ALKALINE PHOSPHATASE 49 Units/L (46-116); ASPARTATE AMINO TRANSFERASE 13 Units/L (15-37); BLOOD UREA NITROGEN 18 mg/dL (7-18); CALCIUM 8.6 mg/dL (8.5-10.1); CARBON DIOXIDE 32.4 mmol/L (21-32); CHLORIDE 106 mmol/L (98-107); COR CA(FOR HYPOALB) 9.3 mg/dL (8.5-10.1); CREATININE 0.93 mg/dL (0.55-1.02); SODIUM 141 mmol/L (136-145); TOTAL PROTEIN 5.7 g/dL (6.4-8.2); eGFR BLACK RACES > 60 (>60); eGFR NON BLACK RACES > 60 (>60)
[2017-09-26 06:09] LABS: BASOPHILS % (AUTO) 0.1 % (0.2-1.0); LYMPHOCYTES # (AUTO) 2.1 X10^3/uL (1.3-2.9); LYMPHOCYTES % (AUTO) 19.7 % (21.0-51.0); MEAN CORPUSCULAR HEMOGLOBIN 30.4 pg (27.0-34.0); MEAN CORPUSCULAR HGB CONC 34.1 g/dL (33.0-35.0); MEAN PLATELET VOLUME 6.9 fL (7.4-11.0); MONOCYTES # (AUTO) 0.7 x10^3/uL (0.3-0.8); MONOCYTES % (AUTO) 6.8 % (0.0-13.0); NEUTROPHILS # (AUTO) 7.7 x10^3/uL (2.2-4.8); NEUTROPHILS % (AUTO) 73.4 % (42.0-75.0); PLATELET COUNT 218 X10^3/uL (150.0-450.0); RED BLOOD COUNT 4.27 X10^6/uL (3.5-5.4); RED CELL DISTRIBUTION WIDTH 13.8 % (11.6-16.5); WHITE BLOOD COUNT 10.5 X10^3/uL (3.6-10.0)
--- NOTE | 2017-09-26 07:16 | RAD ---
History: CHF, COPD, asthma, comparison 09/24/2017 Study: AP chest Findings: Single AP view of the chest shows the cardiac silhouette to be at upper limits normal for t echnique. No consolidation is seen. There is a mild persistent increase in interstitial markings like ly reflective of bronchitis. No pleural effusion or Acute osseous abnormality is seen. Impression: 1. No CHF or pneumonia. 2. Findings seen compatible with bronchitis. Reported By:
[2017-09-26] MEDS: CIPRO IV 400 MG PREMIX* 400 MG/200 ML IV.SOLN. IV SCH ×2 (08:12→20:27)
[2017-09-26] MEDS: PREDNISONE TAB 20 MG PO SCH (08:13)
[2017-09-26] MEDS: SEROquel TAB 100 MG PO SCH ×2 (08:13→21:35)
[2017-09-26] MEDS: PROTONIX TAB 40 MG PO SCH (08:13)
[2017-09-26] MEDS: TENORMIN PO SCH (08:13)
[2017-09-26] MEDS: SINGULAIR TAB 10 MG PO SCH (08:13)
[2017-09-26] MEDS: LASIX PO SCH (08:13)
[2017-09-26] MEDS: CLARITIN PO SCH (08:13)
[2017-09-26] MEDS: NORVASC TAB 5 MG PO SCH (08:13)
[2017-09-26] MEDS: ECOTRIN TAB 325 MG PO SCH (08:13)
[2017-09-26] MEDS: TAMIFLU PO SCH ×2 (08:13→21:35)
[2017-09-26] MEDS: K-DUR TAB 20 MEQ PO SCH (08:14)
[2017-09-26] MEDS ORDERED: LASIX IVP ONE (08:26)
[2017-09-26] MEDS: PULMICORT NEB TX 0.5 MG NEB SCH ×2 (09:10→21:54)
[2017-09-26] MEDS: ALDACTONE TAB 25 MG PO SCH (09:30)
[2017-09-26] MEDS: CYMBALTA PO SCH (09:30)
[2017-09-26] MEDS: CRESTOR TAB 10 MG PO SCH (21:35)
[2017-09-26] MEDS: XANAX PO PRN (21:38)
[2017-09-27] MEDS: DUONEB 0.5 MG/3 MG NEB SCH ×3 (02:12→09:05)
[2017-09-27] MEDS: NORCO 10/325 TAB PO SCH ×2 (05:54→10:00)
[2017-09-27] MEDS: NEURONTIN TAB 600 MG PO SCH (05:54)
[2017-09-27] MEDS: FORTAZ or TAZICEF INJ 1 GM in NS 100 ML IV + SPIKE MINIBAG* 100 ML IV SCH (05:54)
[2017-09-27] MEDS: ZOFRAN TAB 4 MG PO SCH ×2 (05:54→10:02)
[2017-09-27] MEDS: CARAFATE SUSP 1 GM/10 ML PO SCH ×2 (05:54→10:30)
[2017-09-27 06:17] LABS: BASOPHILS % (AUTO) 0.3 % (0.2-1.0); EOSINOPHILS # (AUTO) 0.1 x10^3/uL (0.0-0.2); EOSINOPHILS % (AUTO) 0.9 % (0.9-2.9); HEMATOCRIT 40.8 % (36.0-47.0); HEMOGLOBIN 14.3 g/dL (12.0-16.0); LYMPHOCYTES # (AUTO) 2.5 X10^3/uL (1.3-2.9); LYMPHOCYTES % (AUTO) 29.9 % (21.0-51.0); MEAN CORPUSCULAR HGB CONC 35.1 g/dL (33.0-35.0); MEAN CORPUSCULAR VOLUME 88.3 fL (80.0-100.0); MONOCYTES # (AUTO) 0.7 x10^3/uL (0.3-0.8); MONOCYTES % (AUTO) 8.2 % (0.0-13.0); NEUTROPHILS # (AUTO) 5.2 x10^3/uL (2.2-4.8); NEUTROPHILS % (AUTO) 60.7 % (42.0-75.0); PLATELET COUNT 239 X10^3/uL (150.0-450.0); RED BLOOD COUNT 4.62 X10^6/uL (3.5-5.4); RED CELL DISTRIBUTION WIDTH 14.1 % (11.6-16.5); WHITE BLOOD COUNT 8.5 X10^3/uL (3.6-10.0)
[2017-09-27 06:34] LABS: ALANINE AMINOTRANSFERASE 108 Units/L (12-78); ALBUMIN 3.1 g/dL (3.4-5.0); ALKALINE PHOSPHATASE 68 Units/L (46-116); BAND NEUTROPHILS % 3 % (0-10); BLOOD UREA NITROGEN 28 mg/dL (7-18); CALCIUM 8.4 mg/dL (8.5-10.1); CARBON DIOXIDE 30.5 mmol/L (21-32); CHLORIDE 102 mmol/L (98-107); COR CA(FOR HYPOALB) 9.1 mg/dL (8.5-10.1); CREATININE 0.87 mg/dL (0.55-1.02); SODIUM 140 mmol/L (136-145); eGFR BLACK RACES > 60 (>60); eGFR NON BLACK RACES > 60 (>60)
[2017-09-27 06:35] LABS: PLATELET MORPHOLOGY COMMENT NORMAL (NORMAL)
[2017-09-27 06:53] LABS: ASPARTATE AMINO TRANSFERASE 34 Units/L (15-37)
[2017-09-27] MEDS: NS 500 ML IV 500 ML IV SCH (08:41)
[2017-09-27 08:48] VITALS: BP 124/79
[2017-09-27] MEDS: PULMICORT NEB TX 0.5 MG NEB SCH (09:05)
[2017-09-27] MEDS: CIPRO IV 400 MG PREMIX* 400 MG/200 ML IV.SOLN. IV SCH (09:53)
[2017-09-27] MEDS: CLARITIN PO SCH (09:55)
[2017-09-27] MEDS: PREDNISONE TAB 20 MG PO SCH (09:56)
[2017-09-27] MEDS: TENORMIN PO SCH (09:56)
[2017-09-27] MEDS: K-DUR TAB 20 MEQ PO SCH (09:57)
[2017-09-27] MEDS: PROTONIX TAB 40 MG PO SCH (09:57)
[2017-09-27] MEDS: TAMIFLU PO SCH (09:58)
[2017-09-27] MEDS: NORVASC TAB 5 MG PO SCH (09:59)
[2017-09-27] MEDS: ECOTRIN TAB 325 MG PO SCH (09:59)
[2017-09-27] MEDS: SEROquel TAB 100 MG PO SCH (10:00)
[2017-09-27] MEDS: SINGULAIR TAB 10 MG PO SCH (10:00)
[2017-09-27] MEDS: LASIX PO SCH (10:01)
[2017-09-27] MEDS: ALDACTONE TAB 25 MG PO SCH (10:15)
[2017-09-27] MEDS: CYMBALTA PO SCH (10:15)
[2017-09-29 07:17] LABS: ANTI-NUCLEAR ANTIBODY TEST None Detected (None Detected)
== END 2017-09-27 13:50 | disposition home or self-care (01) | DRG 202 ==
LOC: OBS 12:29
PROVIDERS: ADMIT Dermatology Procedural Dermatology; ATTEND Internal Medicine
DX: J20.8 Acute bronchitis due to other specified organisms (principal); J44.1 Chronic obstructive pulmonary disease with (acute) exacerbation; R06.03 Acute respiratory distress; R06.02 Shortness of breath; R53.83 Other fatigue; Z99.81 Dependence on supplemental oxygen; I10 Essential (primary) hypertension; K21.9 Gastro-esophageal reflux disease without esophagitis; R60.1 Generalized edema; N39.0 Urinary tract infection, site not specified
CPT/HCPCS: 36415; 36600; 71045; 71046; 80048; 80053; 81001; 82103; 82803; 83735; 85025; 85652; 86140; 86308; 86677; 86738; 87070; 87086; 87205; 87502; 93005; 93010; 94640; 94760; 99231; A4216; A4217; A4222; G9035; S0181; J0713; J0744; J1940; J2405; J2920; J7506; J7620; J7626

== ENCOUNTER 2018-01-31 14:20 | Observation (INO) ==
[2018-01-31] MEDS ORDERED: NITROSTAT SL PRN (16:51)
[2018-01-31 17:23] LABS: BASOPHILS # (AUTO) 0.1 X10^3/uL (0.0-0.1); BASOPHILS % (AUTO) 0.4 % (0.2-1.0); HEMATOCRIT 42.6 % (36.0-47.0); HEMOGLOBIN 14.6 g/dL (12.0-16.0); LYMPHOCYTES # (AUTO) 1.3 X10^3/uL (1.3-2.9); LYMPHOCYTES % (AUTO) 7.8 % (21.0-51.0); MEAN CORPUSCULAR HEMOGLOBIN 30.1 pg (27.0-34.0); MEAN CORPUSCULAR HGB CONC 34.1 g/dL (33.0-35.0); MEAN PLATELET VOLUME 7.2 fL (7.4-11.0); MONOCYTES # (AUTO) 1.2 x10^3/uL (0.3-0.8); MONOCYTES % (AUTO) 7.5 % (0.0-13.0); NEUTROPHILS # (AUTO) 13.6 x10^3/uL (2.2-4.8); NEUTROPHILS % (AUTO) 84.3 % (42.0-75.0); PLATELET COUNT 280 X10^3/uL (150.0-450.0); RED BLOOD COUNT 4.84 X10^6/uL (3.5-5.4); RED CELL DISTRIBUTION WIDTH 14.9 % (11.6-16.5); WHITE BLOOD COUNT 16.1 X10^3/uL (3.6-10.0)
--- NOTE | 2018-01-31 17:29 | RAD ---
AP chest Indication: Chest pain with shortness of breath Comparison: 09/26/2017 Findings: Heart size is unchanged and borderline enlarged. No focal airspace opacity, pleural effusio n or pneumothorax identified. No acute osseous abnormality. Impression: Stable examination demonstrating borderline cardiomegaly without acute airspace disease o r CHF. Reported By:
[2018-01-31] MEDS: ASPIRIN PO SCH (17:31)
[2018-01-31] MEDS: MORPHINE SULFATE INJ 2 MG INJ IVP PRN (17:32)
[2018-01-31 17:35] LABS: ALANINE AMINOTRANSFERASE 38 Units/L (12-78); ALBUMIN 4.2 g/dL (3.4-5.0); ALKALINE PHOSPHATASE 83 Units/L (46-116); ASPARTATE AMINO TRANSFERASE 13 Units/L (15-37); BLOOD UREA NITROGEN 19 mg/dL (7-18); CALCIUM 9.7 mg/dL (8.5-10.1); CARBON DIOXIDE 25.7 mmol/L (21-32); CHLORIDE 101 mmol/L (98-107); COR NA(FOR HYPERGLY) 140 mmol/L (136-145); CREATININE 1.23 mg/dL (0.55-1.02); MAGNESIUM 2.2 mg/dL (1.7-2.9); SODIUM 139 mmol/L (136-145); TOTAL PROTEIN 7.5 g/dL (6.4-8.2); eGFR NON BLACK RACES 50 (>60)
[2018-01-31 17:39] LABS: BILIRUBIN,URINE NEGATIVE (NEGATIVE); BLOOD/HEMOGLOBIN,URINE NEGATIVE (NEGATIVE); GLUCOSE, URINE NEGATIVE (NEGATIVE); KETONES,URINE NEGATIVE (NEGATIVE); LEUKOCYTE ESTERASE ,URINE 1+ (NEGATIVE); NITRITES,URINE NEGATIVE (NEGATIVE); PROTEIN,URINE NEGATIVE (NEGATIVE); UROBILINOGEN,URINE NORMAL (NORMAL)
[2018-01-31] MEDS ORDERED: VALIUM INJ IVP PRN (17:42)
[2018-01-31 17:48] LABS: APPEARANCE,URINE CLEAR (CLEAR); COLOR,URINE PALE YELLOW (YELLOW)
[2018-01-31] MEDS ORDERED: VALIUM ONE (17:48)
[2018-01-31 17:49] LABS: BACTERIA,URINE TRACE /HPF (NEGATIVE); RBC,URINE NONE SEEN /HPF (NONE SEEN); RENAL EPITHELIAL CELLS,URINE RARE /HPF (NEGATIVE); SQUAMOUS EPITHELIAL CELL,UR RARE /HPF (NEGATIVE)
[2018-01-31] MEDS: VALIUM PO PRN (17:50)
[2018-01-31 18:00] LABS: CKMB % 1.2 % (<4); CREATINE KINASE 113 Units/L (26-192); CREATINE KINASE MB 1.3 ng/mL (0-4.0); TROPONIN I < 0.02 ng/mL (0-1.5)
[2018-01-31 18:22] LABS: ABG BASE EXCESS 3.8 mmol/L (-2.0-2.0); ABG HCO3 29.2 mmol/L (22-26)
[2018-01-31 18:23] LABS: ABG ALLEN TEST POS
[2018-01-31] MEDS: LASIX IVP SCH (21:18)
[2018-01-31] MEDS ORDERED: AMBIEN PO PRN (22:46)
[2018-01-31 23:18] LABS: CREATINE KINASE 126 Units/L (26-192); CREATINE KINASE MB 1.3 ng/mL (0-4.0); TROPONIN I < 0.02 ng/mL (0-1.5)
[2018-01-31] MEDS ORDERED: ROCEPHIN 1 GRAM IV PREMIX 1 G/50 ML IV.SOLN. IV SCH (23:55)
[2018-02-01] MEDS ORDERED: NS 500 ML IV 500 ML IV ONE (00:33)
[2018-02-01] MEDS: VALIUM PO PRN ×2 (05:41→14:00)
[2018-02-01 05:59] LABS: CHOL/HDL RATIO 3.4 (0.0-5.0)
[2018-02-01 06:03] LABS: CKMB % 1.2 % (<4); CREATINE KINASE 105 Units/L (26-192); CREATINE KINASE MB 1.3 ng/mL (0-4.0); TROPONIN I < 0.02 ng/mL (0-1.5)
[2018-02-01] MEDS: MORPHINE SULFATE INJ 2 MG INJ IVP PRN ×3 (06:13→17:56)
[2018-02-01] MEDS: ASPIRIN PO SCH (08:04)
[2018-02-01] MEDS: LASIX IVP SCH (08:04)
--- NOTE | 2018-02-01 08:32 | DR.H&P ---
H&P - History & Physical for Day of: H&P Date: 01/31/18 - Chief Complaint Chief Complaint: The patient is a 47-year-old white female who presents to the clinic with complaint of increasing shortness of breath and chest discomfort. Patient has a long history of COPD and chronic respiratory failure. Patient does give history of CHF and states that she's had a previous cardiac catheterization. 2 years ago had cardiac catheterization which revealed a 30-40 % narrowing of the LAD just after the takeoff of diagonal branch. Circumflex and right coronary arteries were normal. Did question possible coronary artery spasm. The patient's echo revealed grossly normal LV size and systolic function but was unable to determine regional wall motion. The patient complains of having increasing swelling to her stomach. Denies nausea or constipation. States that it is harder for debridement and she's having to stay on her oxygen. States she did go to the main office on 01/30/2018 and did receive 2 shots. States it has not gotten better but stomach is getting larger. Patient states that she does feel bad. Is agreeable for hospital admission. - Past Medical History Past Medical History: COPD (Chronic O2 dependent), Migraines, Hypertension Additional Medical History: CHRONIC RESPIRATORY FAILURE ON OXYGEN - Past Surgical History Surgical History: Cholecystectomy, Other - Family History Family Medical History: Diabetes Mellitus, Cancer, [place], Sudden Cardiac , Hypertension - Social History Does patient currently use any type of tobacco product: No Have you used tobacco products in the last 12 months: No Type of Tobacco Use: Cigarettes How many years tobacco product used: 1 Does any household member use tobacco: No Alcohol Use: None Drug Use: Prescription Drugs - Medications Home Medications: No Known Drug Allergies Allergy (Verified 07/11/17 07:29) - Review of Systems Constitutional: Weakness Eyes: No Symptoms Reported ENT: No Symptoms Reported Respiratory: See HPI, Shortness of Breath, SOB with Excertion Cardiovascular: Chest Pain, Orthopnea, Paroxysmal Noc. Dyspnea Gastrointestinal: No Symptoms Reported, Other (abdominal swelling) Genitourinary: No Symptoms Reported Musculoskeletal: No Symptoms Reported Skin: No Symptoms Reported Neurological: No Symptoms Reported - Physical Exam Vital Signs: Temperature 98.3 F Pulse Rate [Left Radial] 77 Respiratory Rate 16 Blood Pressure [Right Arm] 113/74 Blood Pressure [Left Arm] 109/72 Blood Pressure 124/79 O2 Sat by Pulse Oximetry 97 Oriented: Normal Eyes: Normal Ear: Normal Nose: Normal Throat: Normal Respiratory: Clear Throughout, Diminished Throughout Cardiovascular: Normal : Normal Auscultation: Bowel Sounds: Normal Palpation: Other (abdominal bloating) Tenderness: Normal Skin: Normal Musculoskeletal: Normal Psychiatric: Normal Mood Description: Anxious Affect: Anxious Speech Pattern: Clear - Assessment/Plan (1) Chest pain Status: Acute Plan: cardiac enzymes, labs, cxr, ekgs, telemetry (2) CHF (congestive heart failure) Qualifiers: Heart failure chronicity: chronic Status: Acute Plan: cardiac enzymes, labs, cxr, ekgs, telemetry (3) CAD (coronary artery disease) Status: Acute Plan: cardiac enzymes, labs, cxr, ekgs, telemetry (4) Chronic respiratory failure Qualifiers: Respiratory failure complication: hypoxia Qualified Code(s): J96.11 - Chronic respiratory failure with hypoxia Status: Chronic Plan: O2, ABG - Allergies Allergies/Adverse Reactions: Allergies Allergy/AdvReac Type Severity Reaction Status Date / Time No Known Drug Allergies Allergy Verified 07/11/17 07:29
[2018-02-01] MEDS ORDERED: PHENERGAN INJ 25 MG IV PRN (09:31)
[2018-02-01] MEDS ORDERED: ZOFRAN INJ 4 MG VIAL IVP PRN (09:31)
[2018-02-01] MEDS ORDERED: ZOFRAN INJ 4 MG VIAL ONE (09:33)
[2018-02-01 12:29] VITALS: BMI 44.9
[2018-02-01] MEDS ORDERED: ZANAFLEX PO PRN (13:30)
[2018-02-01] MEDS ORDERED: NORCO 10/325 TAB PO PRN (14:17)
[2018-02-01 16:11] VITALS: BP 136/94
[2018-02-01] MEDS ORDERED: DUONEB 0.5 MG/3 MG NEB SCH (17:00)
[2018-02-01] MEDS ORDERED: SEROquel TAB 100 MG PO SCH (18:00)
--- NOTE | 2018-02-01 18:23 | PCM.PROG ---
Progress Note - Progress Note for Day of Date: 02/01/18 - Subjective Subjective: 47 WF ADMITTED WITH CO CP, SERIAL CE AND EKG'S COLLECTED ON ADMISSION. PT HAS PMH OF HTN, COPD. PT CO MUSCLE ACHES ALL OVER AND UPPER ABDOMINAL PAIN WITH NAUSEA. - Past Medical Family Social History Past Med/Fam/Surg Hx: No changes since H&P Allergies: Allergies No Known Drug Allergies Allergy (Verified 07/11/17 07:29) - Review of Systems ROS: No change since H&P - Vital Signs and I&O's Vital Signs: Temperature 98.5 F Pulse Rate [Left Radial] 124 Respiratory Rate 20 Blood Pressure [Right Arm] 136/94 Blood Pressure [Left Arm] 109/72 Blood Pressure 124/79 O2 Sat by Pulse Oximetry 96 Intake and Output: Intake & Output 01/30/18 01/31/18 02/01/18 02/02/18 11:59 11:59 11:59 11:59 Intake Total 830 / 830 580 / 580 Balance 830 / 830 580 / 580 - Physical Exam Oriented: Normal Eyes: Normal Ear: Normal Nose: Normal Throat: Normal Respiratory: Diminished Cardiovascular: Normal : Normal Auscultation: Bowel Sounds: Normal Tenderness: Epigastric Skin: Normal Musculoskeletal: Back:Thoracic, Back:Lumbar, Tender Psychiatric: Anxiety, Depression Mood Description: Anxious Affect: Anxious Speech Pattern: Clear - Laboratory and Diagnostics Result Diagrams: 01/31/18 17:05 01/31/18 17:05 Labs: Laboratory WBC 16.1 X10^3/uL (3.6-10.0) H 01/31/18 17:05 RBC 4.84 X10^6/uL (3.5-5.4) 01/31/18 17:05 Hgb 14.6 g/dL (12.0-16.0) 01/31/18 17:05 Hct 42.6 % (36.0-47.0) 01/31/18 17:05 MCV 88.0 fL (80.0-100.0) 01/31/18 17:05 MCH 30.1 pg (27.0-34.0) 01/31/18 17:05 MCHC 34.1 g/dL (33.0-35.0) 01/31/18 17:05 RDW 14.9 % (11.6-16.5) 01/31/18 17:05 Plt Count 280 X10^3/uL (150.0-450.0) 01/31/18 17:05 MPV 7.2 fL (7.4-11.0) L 01/31/18 17:05 Neut % (Auto) 84.3 % (42.0-75.0) H 01/31/18 17:05 Lymph % (Auto) 7.8 % (21.0-51.0) L 01/31/18 17:05 [place] % (Auto) 7.5 % (0.0-13.0) 01/31/18 17:05 Eos % (Auto) 0.0 % (0.9-2.9) L 01/31/18 17:05 Baso % (Auto) 0.4 % (0.2-1.0) 01/31/18 17:05 Neut # (Auto) 13.6 x10^3/uL (2.2-4.8) H 01/31/18 17:05 Lymph # (Auto) 1.3 X10^3/uL (1.3-2.9) 01/31/18 17:05 [place] # (Auto) 1.2 x10^3/uL (0.3-0.8) H 01/31/18 17:05 Eos # (Auto) 0.0 x10^3/uL (0.0-0.2) 01/31/18 17:05 Baso # (Auto) 0.1 X10^3/uL (0.0-0.1) 01/31/18 17:05 Absolute Nucleated RBC 0.0 /100WBC 01/31/18 17:05 INR Target Range - 01/31/18 17:05 INR 1.01 (0.8-1.3) 01/31/18 17:05 APTT 22.4 SECONDS (22.9-36.5) L 01/31/18 17:05 PTT Comment - 01/31/18 17:05 Sample Site Right radial 01/31/18 18:12 ABG pH 7.410 (7.35-7.45) 01/31/18 18:12 ABG pCO2 46.0 mmHg (35.0-45.0) H 06/13/18 18:12 ABG pO2 56.0 mmHg (80.0-100.0) L 01/31/18 18:12 ABG HCO3 29.2 mmol/L (22-26) H 01/31/18 18:12 ABG O2 Saturation 89.0 % (90-100) L 01/31/18 18:12 ABG Base Excess 3.8 mmol/L (-2.0-2.0) H 01/31/18 18:12 Girish Test Pos 01/31/18 18:12 A-a Gradient 36.0 mmHg 01/31/18 18:12 FiO2 21.000 01/31/18 18:12 Blood Gas Comments Harvinder well aw 01/31/18 18:12 Sodium 139 mmol/L (136-145) 01/31/18 17:05 Corrected Sodium 140 mmol/L (136-145) 01/31/18 17:05 Potassium 4.1 mmol/L (3.5-5.1) 01/31/18 17:05 Chloride 101 mmol/L (98-107) 01/31/18 17:05 Carbon Dioxide 25.7 mmol/L (21-32) 01/31/18 17:05 BUN 19 mg/dL (7-18) H 01/31/18 17:05 Creatinine 1.23 mg/dL (0.55-1.02) H 01/31/18 17:05 Est GFR (MDRD) Af Amer > 60 (>60) 01/31/18 17:05 Est GFR (MDRD) Non-Af 50 (>60) L 01/31/18 17:05 Glucose 122 mg/dL (65-99) H 01/31/18 17:05 Calcium 9.7 mg/dL (8.5-10.1) 01/31/18 17:05 Corrected Calcium TNP 01/31/18 17:05 Magnesium 2.2 mg/dL (1.7-2.9) 01/31/18 17:05 Total Bilirubin 0.30 mg/dL (0.2-1.0) 01/31/18 17:05 AST 13 Units/L (15-37) L 01/31/18 17:05 ALT 38 Units/L (12-78) 01/31/18 17:05 Alkaline Phosphatase 83 Units/L (46-116) 01/31/18 17:05 Creatine Kinase 105 Units/L (26-192) 02/01/18 05:04 CK-MB (CK-2) 1.3 ng/mL (0-4.0) 02/01/18 05:04 CK/CKMB % Calc 1.2 % (<4) 02/01/18 05:04 Troponin I < 0.02 ng/mL (0-1.5) 02/01/18 05:04 Total Protein 7.5 g/dL (6.4-8.2) 01/31/18 17:05 Albumin 4.2 g/dL (3.4-5.0) 01/31/18 17:05 Globulin 3.3 g/dL (2.5-4.5) 01/31/18 17:05 Albumin/Globulin Ratio 1.3 Ratio (1.1-2.1) 01/31/18 17:05 Triglycerides 191 mg/dL (0-150) H 02/01/18 05:04 Cholesterol 226 mg/dL (0-200) H 02/01/18 05:04 LDL Cholesterol, Calc 121 mg/dL (0-100) H 02/01/18 05:04 HDL Cholesterol 67 mg/dL (40-60) H 02/01/18 05:04 Cholesterol/HDL Ratio 3.4 (0.0-5.0) 02/01/18 05:04 Specimen Type Clean catch urine 01/31/18 17:17 Urine Color Pale yellow (YELLOW) 01/31/18 17:17 Urine Appearance Clear (CLEAR) 01/31/18 17:17 Urine pH 5.0 (5.0 - 8.0) 01/31/18 17:17 Ur Specific [place] 1.010 (1.000-1.030) 01/31/18 17:17 Urine Protein Negative (NEGATIVE) 01/31/18 17:17 Urine Glucose (UA) Negative (NEGATIVE) 01/31/18 17:17 Urine Ketones Negative (NEGATIVE) 01/31/18 17:17 Urine Occult Blood Negative (NEGATIVE) 01/31/18 17:17 Urine Nitrite Negative (NEGATIVE) 01/31/18 17:17 Urine Bilirubin Negative (NEGATIVE) 01/31/18 17:17 Urine Urobilinogen Normal (NORMAL) 01/31/18 17:17 Ur Leukocyte Esterase 1+ (NEGATIVE) 01/31/18 17:17 Urine RBC None seen /HPF (NONE SEEN) 01/31/18 17:17 Urine WBC 0-2 /HPF (NONE SEEN) 01/31/18 17:17 Ur Squamous Epith Cells Rare /HPF (NEGATIVE) 01/31/18 17:17 Ur Renal Epithelial Cell Rare /HPF (NEGATIVE) 01/31/18 17:17 Urine Bacteria Trace /HPF (NEGATIVE) 01/31/18 17:17 Ur Culture Indicated? No/not indicated 01/31/18 17:17 - Plan (1) Chest pain Status: Acute Plan: cardiac enzymes, labs, cxr, ekgs, telemetry (2) CHF (congestive heart failure) Status: Acute Qualifiers: Heart failure chronicity: chronic Plan: cardiac enzymes, labs, cxr, ekgs, telemetry (3) CAD (coronary artery disease) Status: Acute Plan: cardiac enzymes, labs, cxr, ekgs, telemetry (4) Chronic respiratory failure Status: Chronic Qualifiers: Respiratory failure complication: hypoxia Qualified Code(s): J96.11 - Chronic respiratory failure with hypoxia Plan: O2, ABG (5) Epigastric abdominal pain Status: Acute Plan: PAIN AND NAUSEA CONTROL, PPI. CT ABD PELVIS, H PYLORI
[2018-02-01] MEDS ORDERED: ZANTAC PO SCH (21:00)
[2018-02-01] MEDS ORDERED: SINGULAIR TAB 10 MG PO SCH (21:00)
[2018-02-01] MEDS ORDERED: CRESTOR TAB 10 MG PO SCH (21:00)
[2018-02-02] MEDS ORDERED: K-DUR TAB 20 MEQ PO SCH (09:00)
[2018-02-02] MEDS ORDERED: TENORMIN PO SCH (09:00)
[2018-02-02] MEDS ORDERED: CYMBALTA PO SCH (09:00)
--- NOTE | 2018-02-18 07:59 | PCM.DCPLAN ---
Discharge Summary - Admission Date Date of Admission: 01/31/18 - Discharge Date Discharge Date: 02/01/18 - Admission Diagnoses (1) CAD (coronary artery disease) Status: Acute (2) CHF (congestive heart failure) Status: Acute (3) COPD exacerbation Status: Acute (4) Chest pain Status: Acute (5) Epigastric abdominal pain Status: Acute (6) Chronic respiratory failure Status: Chronic - Discharge Diagnoses Discharge Diagnosis: SAME ADMISSION DIAGNOSIS - Discharge Medications Discharge Medications: Home Medication List duloxetine 60 mg PO BID 02/01/18 [History] ranitidine HCl 300 tab PO BID 02/01/18 [History] Prescriptions: - Hospital Course Vital Signs: Temperature 98.5 F Pulse Rate [Left Radial] 124 Respiratory Rate 20 Blood Pressure [Right Arm] 136/94 Blood Pressure [Left Arm] 109/72 Blood Pressure 124/79 O2 Sat by Pulse Oximetry 96 Latest Lab Results: Laboratory Last Values WBC 16.1 X10^3/uL (3.6-10.0) H 01/31/18 17:05 RBC 4.84 X10^6/uL (3.5-5.4) 01/31/18 17:05 Hgb 14.6 g/dL (12.0-16.0) 01/31/18 17:05 Hct 42.6 % (36.0-47.0) 01/31/18 17:05 MCV 88.0 fL (80.0-100.0) 01/31/18 17:05 MCH 30.1 pg (27.0-34.0) 01/31/18 17:05 MCHC 34.1 g/dL (33.0-35.0) 01/31/18 17:05 RDW 14.9 % (11.6-16.5) 01/31/18 17:05 Plt Count 280 X10^3/uL (150.0-450.0) 01/31/18 17:05 MPV 7.2 fL (7.4-11.0) L 01/31/18 17:05 Neut % (Auto) 84.3 % (42.0-75.0) H 01/31/18 17:05 Lymph % (Auto) 7.8 % (21.0-51.0) L 01/31/18 17:05 [place] % (Auto) 7.5 % (0.0-13.0) 01/31/18 17:05 Eos % (Auto) 0.0 % (0.9-2.9) L 01/31/18 17:05 Baso % (Auto) 0.4 % (0.2-1.0) 01/31/18 17:05 Neut # (Auto) 13.6 x10^3/uL (2.2-4.8) H 01/31/18 17:05 Lymph # (Auto) 1.3 X10^3/uL (1.3-2.9) 01/31/18 17:05 [place] # (Auto) 1.2 x10^3/uL (0.3-0.8) H 01/31/18 17:05 Eos # (Auto) 0.0 x10^3/uL (0.0-0.2) 01/31/18 17:05 Baso # (Auto) 0.1 X10^3/uL (0.0-0.1) 01/31/18 17:05 Absolute Nucleated RBC 0.0 /100WBC 01/31/18 17:05 INR Target Range - 01/31/18 17:05 INR 1.01 (0.8-1.3) 01/31/18 17:05 APTT 22.4 SECONDS (22.9-36.5) L 01/31/18 17:05 PTT Comment - 01/31/18 17:05 Sample Site Right radial 01/31/18 18:12 ABG pH 7.410 (7.35-7.45) 01/31/18 18:12 ABG pCO2 46.0 mmHg (35.0-45.0) H 01/31/18 18:12 ABG pO2 56.0 mmHg (80.0-100.0) L 01/31/18 18:12 ABG HCO3 29.2 mmol/L (22-26) H 01/31/18 18:12 ABG O2 Saturation 89.0 % (90-100) L 01/31/18 18:12 ABG Base Excess 3.8 mmol/L (-2.0-2.0) H 01/31/18 18:12 Girish Test Pos 01/31/18 18:12 A-a Gradient 36.0 mmHg 01/31/18 18:12 FiO2 21.000 01/31/18 18:12 Blood Gas Comments Harvinder well aw 01/31/18 18:12 Sodium 139 mmol/L (136-145) 01/31/18 17:05 Corrected Sodium 140 mmol/L (136-145) 01/31/18 17:05 Potassium 4.1 mmol/L (3.5-5.1) 01/31/18 17:05 Chloride 101 mmol/L (98-107) 01/31/18 17:05 Carbon Dioxide 25.7 mmol/L (21-32) 01/31/18 17:05 BUN 19 mg/dL (7-18) H 01/31/18 17:05 Creatinine 1.23 mg/dL (0.55-1.02) H 01/31/18 17:05 Est GFR (MDRD) Af Amer > 60 (>60) 01/31/18 17:05 Est GFR (MDRD) Non-Af 50 (>60) L 01/31/18 17:05 Glucose 122 mg/dL (65-99) H 01/31/18 17:05 Calcium 9.7 mg/dL (8.5-10.1) 01/31/18 17:05 Corrected Calcium TNP 01/31/18 17:05 Magnesium 2.2 mg/dL (1.7-2.9) 01/31/18 17:05 Total Bilirubin 0.30 mg/dL (0.2-1.0) 01/31/18 17:05 AST 13 Units/L (15-37) L 01/31/18 17:05 ALT 38 Units/L (12-78) 01/31/18 17:05 Alkaline Phosphatase 83 Units/L (46-116) 01/31/18 17:05 Creatine Kinase 105 Units/L (26-192) 02/01/18 05:04 CK-MB (CK-2) 1.3 ng/mL (0-4.0) 02/01/18 05:04 CK/CKMB % Calc 1.2 % (<4) 02/01/18 05:04 Troponin I < 0.02 ng/mL (0-1.5) 02/01/18 05:04 Total Protein 7.5 g/dL (6.4-8.2) 01/31/18 17:05 Albumin 4.2 g/dL (3.4-5.0) 01/31/18 17:05 Globulin 3.3 g/dL (2.5-4.5) 01/31/18 17:05 Albumin/Globulin Ratio 1.3 Ratio (1.1-2.1) 01/31/18 17:05 Triglycerides 191 mg/dL (0-150) H 02/01/18 05:04 Cholesterol 226 mg/dL (0-200) H 02/01/18 05:04 LDL Cholesterol, Calc 121 mg/dL (0-100) H 02/01/18 05:04 HDL Cholesterol 67 mg/dL (40-60) H 02/01/18 05:04 Cholesterol/HDL Ratio 3.4 (0.0-5.0) 02/01/18 05:04 Specimen Type Clean catch urine 01/31/18 17:17 Urine Color Pale yellow (YELLOW) 01/31/18 17:17 Urine Appearance Clear (CLEAR) 01/31/18 17:17 Urine pH 5.0 (5.0 - 8.0) 01/31/18 17:17 Ur Specific [place] 1.010 (1.000-1.030) 01/31/18 17:17 Urine Protein Negative (NEGATIVE) 01/31/18 17:17 Urine Glucose (UA) Negative (NEGATIVE) 01/31/18 17:17 Urine Ketones Negative (NEGATIVE) 01/31/18 17:17 Urine Occult Blood Negative (NEGATIVE) 01/31/18 17:17 Urine Nitrite Negative (NEGATIVE) 01/31/18 17:17 Urine Bilirubin Negative (NEGATIVE) 01/31/18 17:17 Urine Urobilinogen Normal (NORMAL) 01/31/18 17:17 Ur Leukocyte Esterase 1+ (NEGATIVE) 01/31/18 17:17 Urine RBC None seen /HPF (NONE SEEN) 01/31/18 17:17 Urine WBC 0-2 /HPF (NONE SEEN) 01/31/18 17:17 Ur Squamous Epith Cells Rare /HPF (NEGATIVE) 01/31/18 17:17 Ur Renal Epithelial Cell Rare /HPF (NEGATIVE) 01/31/18 17:17 Urine Bacteria Trace /HPF (NEGATIVE) 01/31/18 17:17 Ur Culture Indicated? No/not indicated 01/31/18 17:17 H. pylori IgG Antibody Negative (NEGATIVE) 02/01/18 18:54 Hospital Course: The patient is a 47-year-old white female who presents to the clinic with complaint of increasing shortness of breath and chest discomfort. Patient has a long history of COPD and chronic respiratory failure. Patient does give history of CHF and states that she's had a previous cardiac catheterization. 2 years ago had cardiac catheterization which revealed a 30-40% narrowing of the LAD just after the takeoff of diagonal branch. Circumflex and right coronary arteries were normal. Did question possible coronary artery spasm. The patient 's echo revealed grossly normal LV size and systolic function but was unable to determine regional wall motion. The patient complains of having increasing swelling to her stomach. Denies nausea or constipation. States that it is harder for debridement and she's having to stay on her oxygen. States she did go to the main office on 01/30/2018 and did receive 2 shots. States it has not gotten better but stomach was getting larger. Cardiac workup was negative. CXR clear. patient was transferred to [facility] for further work up. - Discharge Plan Disposition: XF [facility] HOSP Condition: Good - Follow ups/Referrals Follow ups/Referrals: [facility] [Other] - 1 WEEK SENTHIL MARTINEZ [Primary Care Provider] - 1 WEEK - Instructions
== END 2018-02-01 19:20 | disposition short-term general hospital (02) ==
LOC: MED/SURG
PROVIDERS: ADMIT Internal Medicine; ATTEND Internal Medicine
DX: R07.89 Other chest pain; Z99.81 Dependence on supplemental oxygen; I25.10 Atherosclerotic heart disease of native coronary artery without angina pectoris; J96.11 Chronic respiratory failure with hypoxia; I10 Essential (primary) hypertension; R10.13 Epigastric pain; I50.9 Heart failure, unspecified; J44.9 Chronic obstructive pulmonary disease, unspecified
CPT/HCPCS: 36415; 36600; 71010; 71045; 80053; 80061; 81001; 82550; 82553; 82803; 83735; 84484; 85025; 85610; 85730; 86677; 93005; 93010; 94640; 94760; A4216; A4222; G0378; J0696; J1940; J2270; J2405; J7040; J7620